=== PATIENT | male | born 1970 | race African-American/Black ===

== ENCOUNTER 2019-03-14 09:32 | Emergency (ER) | payer OTHER ==
[~2019-03-14] VITALS: Ht 185.4 cm; Wt 79.4 kg
[~2019-03-14 09:32] MED LIST: AMBIEN 5 MG TABL5 M1 PO; AMITRIPTYLINE H25 M2 PO; ZOLOFT25 MG PO
[2019-03-14 10:06] LABS: ABSOLUTE NEUTROPHILS 1.8 thou/uL (1.4-8.2); BASOPHILS 3.4 % (0.0-2.0); HEMATOCRIT 33.5 % (42.0-52.0); HEMOGLOBIN 10.8 gm/dL (14.0-18.0); LYMPHOCYTES 36.7 % (24.0-44.0); MCH 28.4 pg (26.0-34.0); MCHC 32.3 g/dL (28.0-37.0); MCV 87.8 fL (80.0-100.0); MONOCYTES 7.2 % (1.0-8.0); PLATELET COUNT 317 thou/uL (150-400); POLYS 34.7 % (36.0-66.0); RBC 3.81 mil/uL (4.50-6.00); RDW 14.2 % (10.5-14.5); WBC 5.2 thou/uL (4.0-11.0)
[2019-03-14 10:20] LABS: ANION GAP 9 mmol/L (7-16); BUN 16 mg/dL (7-18); CALCIUM 8.4 mg/dL (8.5-10.1); CHLORIDE 103 mmol/L (98-107); CO2 26 mmol/L (21-32); CREATININE 0.7 mg/dL (0.7-1.3); GLUCOSE 105 mg/dL (74-106); POTASSIUM 4.2 mmol/L (3.5-5.1); SODIUM 138 mmol/L (136-145)
[2019-03-14 10:26] LABS: ALBUMIN 3.2 g/dL (3.4-5.0); DIRECT BILIRUBIN < 0.1 mg/dL (<0.1-0.2); MAGNESIUM 2.1 mg/dL (1.8-2.4); SGOT 40 U/L (15-37); SGPT 39 U/L (30-65); TOTAL BILIRUBIN 0.3 mg/dL (<0.1-1.0); TOTAL PROTEIN 6.9 g/dL (6.4-8.2)
[2019-03-14 11:10] VITALS: BP 125/96
== END 2019-03-14 11:10 | disposition home or self-care (01) ==
LOC: ER 09:32
PROVIDERS: Emergency Medicine
DX: F10.10 Alcohol abuse, uncomplicated (principal); R26.89 Other abnormalities of gait and mobility; Y90.3 Blood alcohol level of 60-79 mg/100 ml